=== PATIENT | male | born 1995 | race American Indian/Alaskan Native ===

== ENCOUNTER 2017-10-06 10:18 | Emergency (ER) | payer SELFPAY ==
[2017-10-06 10:40] VITALS: TEMP 97; O2SAT 100; BMI 23.4
--- NOTE | 2017-10-06 11:54 | ED PDOC ---
HPI: General Adult Time Seen by Provider: 10/06/17 10:42 Chief Complaint (Nursing): Male Genitourinary Chief Complaint (Provider): Hemorrhoids History Per: Patient History/Exam Limitations: no limitations Onset/Duration Of Symptoms: Hrs (today) Current Symptoms Are (Timing): Still Present Additional Complaint(s): Aneesh Guillen is a 22 year old male, with no significant past medical history, who presents to the emergency department complaining of hemorrhoids associated with blood in stool today. Patient states he's had hemorrhoids for a long time but today he noticed blood in stool which prompted concern for ED visit. Patient has used Preparation H in the past with temporary resolution of hemorrhoids. He denies any constipation, nausea, vomit, diarrhea, or abdominal pain. No further medical complaints. Patient also states he requires a work note. PMD: Dr. Rodriguez Past Medical History Reviewed: Historical Data, Nursing Documentation, Vital Signs Vital Signs: Last Vital Signs Temp 97 F L 10/06/17 10:39 Pulse 62 10/06/17 12:35 Resp 18 10/06/17 12:35 BP 130/70 10/06/17 12:35 Pulse Ox 100 10/06/17 12:35 - Medical History PMH: No Chronic Diseases - Surgical History Surgical History: No Surg Hx - Family History Family History: States: Unknown Family Hx - Social History Current smoker - smoking cessation education provided: Yes (Heavy smoker) Alcohol: None - Immunization History Hx Tetanus Toxoid Vaccination: No Hx Influenza Vaccination: No Hx Pneumococcal Vaccination: No - Home Medications Home Medications: Ambulatory Orders Medication Instructions Recorded Acyclovir [Zovirax] 400 mg PO TID #21 tab 05/31/17 Cephalexin [cephalexin] 500 mg PO Q6 #28 cap 06/03/17 Ibuprofen [Motrin] 600 mg PO Q6 PRN #20 tab 06/03/17 Sulfamethoxazole/Trimethoprim 1 tab PO BID #14 tab 07/14/17 [Bactrim DS 800 mg-160 mg] Cephalexin [Keflex] 500 mg PO TID #21 capsule 08/29/17 Ibuprofen [Motrin Tab] 600 mg PO Q6 PRN #24 tab 08/29/17 Sulfamethoxazole/Trimethoprim 1 tab PO BID #14 tab 08/29/17 [Bactrim DS 800 mg-160 mg] Phenyleph/Pramoxin/Glycr/W.pet 1 applic RC DAILY #1 cream..g. 10/06/17 [Preparation H Cream] - Allergies Allergies/Adverse Reactions: Allergies Allergy/AdvReac Type Severity Reaction Status Date / Time chocolate flavor Allergy SHORTNESS Verified 08/29/17 20:08 OF BREATH diphenhydramine Allergy RASH Verified 08/29/17 20:08 [From Benadryl] Review of Systems ROS Statement: Except As Marked, All Systems Reviewed And Found Negative Gastrointestinal: Positive for: Other (hemorrhoids w/ blood in stool) Physical Exam - Reviewed Nursing Documentation Reviewed: Yes Vital Signs Reviewed: Yes - Physical Exam Appears: Positive for: No Acute Distress Head Exam: Positive for: ATRAUMATIC, NORMAL INSPECTION, NORMOCEPHALIC Skin: Positive for: Normal Color, Warm, Dry Eye Exam: Positive for: Normal appearance Neck: Positive for: Painless ROM Rectal: Positive for: Normal 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 Negative for : Deformity Neurologic/Psych: Positive for: Alert, Oriented - ECG O2 Sat by Pulse Oximetry: 100 (RA) Pulse Ox Interpretation: Normal Medical Decision Making Medical Decision Making: Time: 10:42 Initial Impression: Rectal bleeding Initial Plan: 12:30 -Patient medically stable, and requires no further treatment in the ED at this time. Patient will be discharged home with Rx for Preparation H cream. Counseling was provided and all questions were answered regarding diagnosis and need for follow up with PCP in 2 days. There is agreement to discharge plan. Return if symptoms persist or worsen. ----- Scribe Attestation: Documented by Milan Hansen, acting as a scribe for Shireen Cruz MD. Provider Scribe Attestation: All medical record entries made by the Scribe were at my direction and personally dictated by me. I have reviewed the chart and agree that the record accurately reflects my personal performance of the history, physical exam, medical decision making, and the department course for this patient. I have also personally directed, reviewed, and agree with the discharge instructions and disposition. Disposition - Clinical Impression Clinical Impression: Rectal bleeding - Disposition Referrals: [facility] [Outside] Disposition: Routine/Home Disposition Time: 12:30 Condition: GOOD Additional Instructions: Follow up with your PCP in 2-3 days. Prescriptions: Phenyleph/Pramoxin/Glycr/W.pet [Preparation H Cream] 1 applic RC DAILY #1 cream..g. Instructions: Hemorrhoids (DC) Forms: [facility] ED School/Work Excuse
[2017-10-06 12:51] VITALS: BP 130/70; PULSE 62; RESP 18
== END 2017-10-06 12:38 | disposition home or self-care (01) ==
LOC: H.ER 10:18 → MERGE 10:18 → H.ER 12:38
DX: K62.5 Hemorrhage of anus and rectum (principal); K64.8 Other hemorrhoids

== ENCOUNTER 2018-04-22 16:21 | Emergency (ER) | payer SELFPAY ==
[2018-04-22 16:21] VITALS: BMI 23.4
[2018-04-22 16:49] VITALS: BP 113/71; PULSE 65; RESP 16; TEMP 98.5; O2SAT 100
--- NOTE | 2018-04-22 17:09 | ED PDOC ---
HPI: Dental Pain/Injury Time Seen by Provider: 04/22/18 16:55 Chief Complaint (Nursing): Dental Pain Chief Complaint (Provider): Toothache History Per: Patient History/Exam Limitations: no limitations Onset/Duration Of Symptoms: Days (several days) Current Symptoms Are (Timing): Still Present Quality: "Pain" (Pt presnets to the ED after several days of dental pain to the lower right molars. Pt indicates that he has seen a dentist and was told he needed a root canal, and comes to the ED because he seeks differnt opinion and for pain relieft) Past Medical History Reviewed: Historical Data, Nursing Documentation, Vital Signs Vital Signs: Last Vital Signs Temp 98.5 F 04/22/18 16:47 Pulse 65 04/22/18 16:47 Resp 16 04/22/18 16:47 BP 113/71 04/22/18 16:47 Pulse Ox 100 04/22/18 16:47 - Family History Family History: States: Unknown Family Hx - Immunization History Hx Tetanus Toxoid Vaccination: No Hx Influenza Vaccination: No Hx Pneumococcal Vaccination: No - Home Medications Home Medications: Ambulatory Orders Medication Instructions Recorded Acyclovir [Zovirax] 400 mg PO TID #21 tab 05/31/17 Cephalexin [cephalexin] 500 mg PO Q6 #28 cap 06/03/17 Ibuprofen [Motrin] 600 mg PO Q6 PRN #20 tab 06/03/17 Sulfamethoxazole/Trimethoprim 1 tab PO BID #14 tab 07/14/17 [Bactrim DS 800 mg-160 mg] Cephalexin [Keflex] 500 mg PO TID #21 capsule 08/29/17 Ibuprofen [Motrin Tab] 600 mg PO Q6 PRN #24 tab 08/29/17 Sulfamethoxazole/Trimethoprim 1 tab PO BID #14 tab 08/29/17 [Bactrim DS 800 mg-160 mg] Phenyleph/Pramoxin/Glycr/W.pet 1 applic RC DAILY #1 cream..g. 10/06/17 [Preparation H Cream] - Allergies Allergies/Adverse Reactions: Allergies Allergy/AdvReac Type Severity Reaction Status Date / Time chocolate flavor Allergy SHORTNESS Verified 04/22/18 16:46 OF BREATH diphenhydramine Allergy RASH Verified 04/22/18 16:46 [From Benadryl] Review of Systems ROS Statement: Except As Marked, All Systems Reviewed And Found Negative Constitutional: Negative for: Fever ENT: Positive for: Other (toothache) Physical Exam - Reviewed Nursing Documentation Reviewed: Yes Vital Signs Reviewed: Yes - Physical Exam Appears: Positive for: Well, Non-toxic, No Acute Distress. Negative for: Uncomfortable Head Exam: Positive for: ATRAUMATIC, NORMAL INSPECTION Skin: Positive for: Normal Color, Warm, Dry Eye Exam: Positive for: Normal appearance. Negative for: Periorbital swelling, Periorbital tenderness ENT: Positive for: Other (tooth number 31 has cracked enamel posteriorly that has been worn and indicative of chronic; tooth is caried on lingual side. There is no abscess there is no infection; ) Neck: Positive for: Normal, Painless ROM, Supple. Negative for: Decreased ROM Cardiovascular/Chest: Positive for: Regular Rate, Rhythm Respiratory: Positive for: Normal Breath Sounds - ECG O2 Sat by Pulse Oximetry: 100 Medical Decision Making Medical Decision Making: I: toothache (dental advised root canal is necessary) P: toradol 60mg and apap 650mg Pt is stable for discharge and in no apparent distress. Pt advised to follow up with his dentist Disposition - Clinical Impression Clinical Impression: Toothache - Patient ED Disposition Is Patient to be Admitted: No Doctor Will See Patient In The: Office Counseled Patient/Family Regarding: Diagnosis, Need For Followup - Disposition Disposition: Routine/Home Disposition Time: 17:11 Condition: STABLE Additional Instructions: follow up with your dentist for further treatment Instructions: Dental Pain (DC), Dental Pain
== END 2018-04-22 17:37 | disposition home or self-care (01) ==
LOC: H.ER 16:21
DX: K08.89 Other specified disorders of teeth and supporting structures (principal); Z88.8 Allergy status to other drugs, medicaments and biological substances

== ENCOUNTER 2018-07-07 19:09 | Emergency (ER) | payer MEDICAID, OTHER ==
[2018-07-07 19:09] VITALS: BMI 23.4
[2018-07-07 20:23] VITALS: BP 140/88; PULSE 70; RESP 16; TEMP 98.5; O2SAT 99
[2018-07-07] MEDS ORDERED: Oxycodone/Acetaminophen 5/325 mg Tab PO STA ×2 (20:51→21:02)
[2018-07-07] MEDS ORDERED: Amoxicillin-Clav 875-125 mg Tab PO STA (20:54)
[2018-07-07] MEDS ORDERED: Oxycodone/Acetaminophen 5/325 mg Tab ONE (20:58)
--- NOTE | 2018-07-07 22:01 | ED PDOC ---
HPI: Dental Pain/Injury Time Seen by Provider: 07/07/18 20:44 Chief Complaint (Nursing): Dental Pain Chief Complaint (Provider): Dental Pain History Per: Patient History/Exam Limitations: no limitations Onset/Duration Of Symptoms: Days (4) Current Symptoms Are (Timing): Still Present Quality: "Pain" Additional Complaint(s): 23 year old male with no significant medical history presents to the ED for evaluation of right lower tooth pain, onset four days ago. Patient reports pain began progressively worsening to the point where he took Benadryl (which he is allergic to) to help him sleep. Today, at 5 pm he took 800 mg of Motrin, which he got from his girlfriend who received it one week ago, with minimal relief. Pain is unbearable. Denies fever and chills. PMD: none Past Medical History Reviewed: Historical Data, Nursing Documentation, Vital Signs Vital Signs: Last Vital Signs Temp 98.5 F 07/07/18 20:22 Pulse 70 07/07/18 20:22 Resp 16 07/07/18 20:22 BP 140/88 07/07/18 20:22 Pulse Ox 99 07/07/18 20:22 Primary Care Provider: Procedure,Nonphys - Medical History PMH: No Chronic Diseases - Surgical History Surgical History: No Surg Hx - Family History Family History: States: Unknown Family Hx - Immunization History Hx Tetanus Toxoid Vaccination: No Hx Influenza Vaccination: No Hx Pneumococcal Vaccination: No - Home Medications Home Medications: Ambulatory Orders Medication Instructions Recorded Acyclovir [Zovirax] 400 mg PO TID #21 tab 05/31/17 Cephalexin [cephalexin] 500 mg PO Q6 #28 cap 06/03/17 Ibuprofen [Motrin] 600 mg PO Q6 PRN #20 tab 06/03/17 Sulfamethoxazole/Trimethoprim 1 tab PO BID #14 tab 07/14/17 [Bactrim DS 800 mg-160 mg] Cephalexin [Keflex] 500 mg PO TID #21 capsule 08/29/17 Ibuprofen [Motrin Tab] 600 mg PO Q6 PRN #24 tab 08/29/17 Sulfamethoxazole/Trimethoprim 1 tab PO BID #14 tab 08/29/17 [Bactrim DS 800 mg-160 mg] Phenyleph/Pramoxin/Glycr/W.pet 1 applic RC DAILY #1 cream..g. 10/06/17 [Preparation H Cream] Amoxicillin/Clavulanate [Augmentin 1 tab PO BID 7 Days tab 07/07/18 875 MG-125 MG] Ibuprofen [Motrin Tab] 800 mg PO Q6 PRN 7 Days tab 07/07/18 oxyCODONE/Acetaminophen [Percocet 1 ea PO Q8 PRN #6 tab 07/07/18 5/325 mg Tab] - Allergies Allergies/Adverse Reactions: Allergies Allergy/AdvReac Type Severity Reaction Status Date / Time chocolate flavor Allergy SHORTNESS Verified 04/22/18 16:46 OF BREATH diphenhydramine Allergy RASH Verified 04/22/18 16:46 [From Benadryl] Review of Systems ROS Statement: Except As Marked, All Systems Reviewed And Found Negative ENT: Positive for: Mouth Pain (tooth) Physical Exam - Reviewed Nursing Documentation Reviewed: Yes Vital Signs Reviewed: Yes - Physical Exam Appears: Positive for: Uncomfortable Head Exam: Positive for: ATRAUMATIC Skin: Positive for: Normal Color, Warm, Dry Eye Exam: Positive for: EOMI, Normal appearance, PERRL ENT: Positive for: Other (2nd mandibular molar on the right cracked, (+) gum swelling and tenderness on palpation. Tenderness on palpation of right mandible with mild swelling. Missing third molar, no purulent drainage. Poor dentition overall) Neck: Positive for: Normal (Normal flexion and extension lateral rotation of neck ), Painless ROM, Supple Cardiovascular/Chest: Positive for: Regular Rate, Rhythm Neurological/Psych: Positive for: Awake, Alert, Normal Tone, Oriented (x 3). Negative for: Motor/Sensory Deficits - ECG O2 Sat by Pulse Oximetry: 99 (RA) Pulse Ox Interpretation: Normal Medical Decision Making Medical Decision Makin:00 MDM: 5/325 Percocet tab PO Augmentin 875 tab PO Advised to follow up with dentist as soon as possible. Referral for [facility] dental clinic and Dr. Bliss (dentist) [place] [facility] aware, website queried; no history filling narcotics Advised to take Motrin for pain as much as possible A few pills of Percocet prescribed for severe pain. Informed of addictive properties of narcotics. Pt demonstrated understanding. --- Scribe Attestation: Documented by Chaparrita Parekh, acting as a scribe Tiffany Kerr Provider Scribe Attestation: All medical record entries made by the Scribe were at my direction and personally dictated by me. I have reviewed the chart and agree that the record accurately reflects my personal performance of the history, physical exam, medical decision making, and the department course for this patient. I have also personally directed, reviewed, and agree with the discharge instructions and disposition. Disposition - Clinical Impression Clinical Impression: Dental abscess - Patient ED Disposition Is Patient to be Admitted: No - Disposition Referrals: [facility] [place] [Outside] Disposition: Routine/Home Disposition Time: 21:00 Condition: FAIR Additional Instructions: Follow up with dentist at [facility] or Dr. Alka PALACIOS. Take full course of antibiotics as prescribed. Take Ibuprofen for pain and only take Percocet for severe pain as Percocet is a narcotic and can be addictive. Prescriptions: Amoxicillin/Clavulanate [Augmentin 875 MG-125 MG] 1 tab PO BID 7 Days tab Ibuprofen [Motrin Tab] 800 mg PO Q6 PRN 7 Days tab PRN Reason: Pain, Moderate (4-7) oxyCODONE/Acetaminophen [Percocet 5/325 mg Tab] 1 ea PO Q8 PRN #6 tab PRN Reason: Pain, Severe (8-10) Instructions: Tooth Abscess (DC), Dental Pain (DC) Forms: [employer] (Ugandan) Print Language: GABONESE
== END 2018-07-07 21:46 | disposition home or self-care (01) ==
LOC: H.ER 19:09
DX: K04.7 Periapical abscess without sinus (principal); Z88.8 Allergy status to other drugs, medicaments and biological substances